=== PATIENT | female | born 1950 | race Caucasian/White ===

== ENCOUNTER → 2017-04-01 | Outpatient (CLI) | payer OTHER, MEDICARE ==
[~2017-04-01] MED LIST: AXERT12.5 MG PO; BACLOFEN 10MG T10 MG PO; COLACE100 MG; GRALISE300 MG PO; LORATIDINE 10 M10 M1 PO; METHADONE HCL 110 M1 PO; METHADONE HCL5 MG PO; NIACIN PO; OCUVITE LUTEIN1 EAC2; OXYCODONE HCL 55 MG PO; OXYCONTIN40 MG PO; PREMARIN0.625 MG PO; SERTRALINE HCL100 MG PO; SIMVASTATIN40 MG PO; TOPAMAX 25 MG T25 M1 PO; VITAMIN D1000 UNI1 PO
--- NOTE | 2017-04-01 17:41 | EKG ---
[place] [address] ELECTROCARDIOGRAM REPORT Name: GABI MUSA Room: [facility]#: [id number] Admission: 04/01/17 Attend Phys: Billy Ashford Discharge: Date of : 46 Report #: [id number] THIS REPORT FOR: //name// [facility] Test Date: 2017-04-01 Test Time: 12:00:42 Pat Name: GABI MUSA Department: Room: Gender: F Assistant Teacher Primary: 25 : 1950 Requested By: Ahsan Frost Order Number: [id number] Reading MD: Vinay Arriaga Measurements Intervals [place] Rate: 65 P: -9 MS: 177 QRS: 56 QRSD: 112 T: 31 QT: 450 QTc: 468 Interpretive Statements Sinus rhythm Borderline intraventricular conduction delay No previous ECG available for comparison Electronically Signed On 04-01-2017 17:41:31 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
--- NOTE | 2017-04-03 09:33 | PAINCON ---
[facility] [address] [place] [address] PAIN MANAGEMENT CONSULTATION Name: GABI MUSA Room: [facility] Campo#: [id number] Admission: 04/01/17 Attend Phys: Billy Ashford Discharge: Date of : 46 Report #: [id number] THIS REPORT FOR: //name// CC: Mark Frost The patient is a 67-year-old female seen in consultation at the request of Dr. Chavis for assistance with management of chronic axial back and lumbar radicular pain. The patient has been maintained on OxyContin 40 mg b.i.d. with oxycodone 5 mg up to b.i.d. for nearly a decade (per the patient). With CDC recommendations for lowering opiate use overall, I was asked to evaluate the patient for appropriateness of medications and offer suggestions regarding optimization of medication management. The patient notes she has had chronic pain since 1998. She has actually had a decompressive laminectomy in 1977 with good relief for nearly 20 years. Symptoms began to recur. She had a subsequent surgery in 1998 and has had ongoing back and left leg pain, which she claims is worse following the surgery. I had actually seen the patient in the past, we trialed a spinal cord stimulator, which had excellent efficacy. I referred her to Dr. Bernard Adams for implantation, spinal cord stimulator was implanted in 08/2012. Unfortunately, per the patient, she has had suboptimal coverage ever since the implantation. She does have some paresthesia into the left hip and lateral thigh. She feels it is helpful and she does use it daily. She notes currently she has pain in the left hip somewhat in the SI area, low back and left leg, exacerbated with standing or walking. She has neurogenic claudication type symptoms with ambulation of more than about 20 steps. The pain starts to move around from back to the abdomen. She has subjective weakness in the leg, paresthesia radiating down the left leg into the lateral 3 toes. Fortunately, she does deny saddle anesthesia or bowel or bladder incontinence. She describes symptoms that are continuous, steady, constant, burning, shooting, cramping, aching, gnawing, throbbing, pounding and tender. She rates her pain a 6 to a "20" on a 0-10 visual analog scale despite supratherapeutic opiate analgesics. Currently, her OxyContin and oxycodone equate to roughly 135 mg morphine equivalents. The patient states she has trialled a calcium channel membrane stabilizing agents including Neurontin and Lyrica, Lyrica failed efficacy and Neurontin after 6 months caused some hallucinations. REVIEW OF SYSTEMS: Complete review of systems is attached to chart and has gone over with the patient. She is . She has 3 daughters. She is seen in the company of her middle daughter. She does not smoke, drink alcohol to excess. History of histoplasmosis, history of cardiac arrhythmia. History of irritable bowel syndrome. History of some chronic anxiety and depression for which she takes sertraline. She has had migraine headaches in the past, had [facility] [address] [place] [address] PAIN MANAGEMENT CONSULTATION Name: GABI MUSA Room: [facility] [place]#: [id number] Admission: 04/01/17 Attend Phys: Billy Ashford Discharge: Date of : 46 Report #: [id number] been prescribed Topamax and Axert, though she tells me she has been off of those for about 3 years. Does take a female hormone replacement and does take simvastatin for dyslipidemia. Surgical history was reviewed, again the 2 aforementioned back surgeries in 1977 and again in 1998 and spinal cord stimulator implant in 2012. Other surgeries included a total abdominal hysterectomy in 1978. The patient has been medically disabled and retired since 07/1998. Her pain impact score is quite high, averaging 67/70. PHYSICAL EXAMINATION: VITAL SIGNS: Reveals a 5 feet 5 inches, 187 pounds female, BMI is 30.2 kg/m2. Blood pressure is 143/70, pulse 72, respiratory rate 16. HEENT: Extraocular muscles are intact, though she does have lateral gaze nystagmus. Pupils are equal and reactive to light and accommodation. Thyroid is enlarged, no nodules are noted. Cervical range of motion is full. Upper extremity strength is generally preserved. HEART: Regular rhythmical without murmur at this time. LUNGS: Clear. Has an endomorphic build. Rises from chair using the armrest. EXTREMITIES: She has a modestly ataxic and antalgic gait. Lower extremity shows diminished strength in the left leg versus the right. Right leg has objective strength about 4-5 to all muscle groups tested. Left leg shows a little bit less strength, perhaps 3/5 and somewhat jerky effort to hip flexion, extension, dorsiflexion, plantar flexion. Difficult to tell if this is secondary to neurogenic source or simply less effort secondary to pain. Straight leg raise is positive at 30 degrees on the left. Patellar reflex is diminished 1/4 versus 2/4 on the right. Achilles reflexes are generally symmetric. Skin integument is intact. There are no recent diagnostic studies available for evaluation at this time, again with a spinal cord stimulator in place, MRIs are contraindicated, though we could get a CT myelogram if further surgery was warranted. RECOMMENDATIONS: Long discussion with the patient today about opiate use and concern for opiate-induced hyperalgesia with supratherapeutic doses. Again, the patient has been on essentially 90 mg of oxycodone a day for nearly a decade. She has pain that is at a minimum is 6 on a VAS and a maximum of "20" on a 0-10 VAS despite this load of opiate. Suggested that we consider an opiate rotation. She may benefit from rotating to methadone, a robust opiate agonist that also is advantageous for neuropathic pain with NMDA receptor activity. Equally analgesic of methadone (to OxyContin 40 mg b.i.d.) would be 30 mg of methadone. Given that with most opiate rotations, we try and decrease the overall opiate load and in the patient's case, we are desirous of trying to get under 90 mg of morphine a day, I have elected to rotate to methadone 5 mg starting with 2 tablets in the morning, 1 at noon, and 2 at night (25 mg methadone per day). [place] [address] PAIN MANAGEMENT CONSULTATION Name: GABI MUSA Room: [facility]#: [id number] Admission: 04/01/17 Attend Phys: Billy Ashford Discharge: Date of : 46 Report #: [id number] this causes any untoward sedation, I will have her drop to 1 tablet in the morning, 1 at noon, and 2 at night (20 mg methadone). Suggest she continue oxycodone 5 mg b.i.d. I would like to see her about 3 weeks after she starts this medication, if she is doing well, we might try and wean a little further. If she is having ongoing pain, we may consider trialing a sodium channel membrane stabilizing agent, likely Tegretol or Trileptal. Lastly, we did order an EKG today, all opiate analgesics are associated with QT interval prolongation, and methadone is perhaps a little more than notorious for this. With a history of cardiac dysrhythmia, we want to ensure that she has QT intervals within normal limits. I have taken the liberty of writing for the aforementioned 2 opiate analgesics, methadone and renewal of oxycodone 5 mg, dispensed 60 tablets (with a release date of 04/21/2017). I will see the patient at the end of April to evaluate efficacy. Thank you for allowing me to participate in the patient's care. I will keep you abreast of her progress. <ELECTRONICALLY SIGNED> By: Ahsan Frost DO 04/03/17 0933 1316 [id number] Frost DO /pallavi
== END ==
LOC: M.CRD 01:29 → M.PC 01:29
DX: M54.9 Dorsalgia, unspecified (principal); M54.16 Radiculopathy, lumbar region; Z98.890 Other specified postprocedural states; Z79.891 Long term (current) use of opiate analgesic

== ENCOUNTER → 2017-05-13 | Outpatient (CLI) | payer OTHER, MEDICARE ==
--- NOTE | 2017-05-14 10:21 | PAINCON ---
[address] [address] PAIN MANAGEMENT CONSULTATION Name: GABI MUSA Room: [facility] [place]#: [id number] Admission: 05/13/17 Attend Phys: Billy Ashford Discharge: Date of : 46 Report #: [id number] THIS REPORT FOR: //name// CC: Mark Frost HISTORY OF PRESENT ILLNESS: The patient is a pleasant 67-year-old female seen in consultation on 04/01/2017, diagnosed with symptomatic chronic pain syndrome, axial back pain, lumbar radiculopathy, status post decompressive laminectomy, component of lumbar and lumbosacral spondylosis without myelopathy or radiculopathy. The patient came to us on supratherapeutic dose of opiate analgesic, OxyContin 40 mg b.i.d. with oxycodone 5 mg b.i.d., 90 mg of oxycodone roughly equivalent to 135 morphine mEq. We rotated the methadone 5 mg 2 in the morning, 1 at noon, and 2 at night (25 mg). She returns to the pain clinic today. She notes the spinal cord stimulator which was placed in 08/2012 afford suboptimal relief. She feels that the current medication has been "about the same" as prior agent, though she does get a little drowsy in the afternoon using oxycodone for breakthrough pain. She feels the pain is little worse after the 5 mg methadone dose. She recently had an upper respiratory infection, was diagnosed with mononucleosis. She notes pain, primarily left gluteal area. She has trigger points in the gluteus medius and gluteus avani as well as some tenderness over the left SI joint. Positive Norris test, Gaenslen's and pelvic distraction as well as trigger point palpation in the left gluteus medius and gluteus avani. We reviewed the fact that opiate medications are being used to provide analgesia adequate to support activities of daily living, not attempting to achieve a specific pain score on the 0-10 Visual Analog Scale. The current opiate medications are providing sufficient analgesia to allow the patient to participate in activities of daily living. The patient is not exhibiting any aberrant behavior suggestive of drug diversion. The patient is not having any adverse reactions to medications. The patient is not suffering from daytime somnolence or mental acuity changes. The patient is managing opiate-induced constipation with appropriate kjad-ala-stffvgs agents and dietary considerations. The patient was counseled on concern for caution with operating a motor vehicle while using opiate medications. A physical exam was performed and the patient's functional status was evaluated. All patients with back pain were advised against the bed rest greater than 4 days and were advised to return to normal activities. Pain score assessment was noted and the treatment plan was reviewed with [place] [address] PAIN MANAGEMENT CONSULTATION Name: GABI MUSA Room: [facility]#: [id number] Admission: 05/13/17 Attend Phys: Billy Ashford Discharge: Date of : 46 Report #: [id number] medications, both prescribed and OTC were reviewed and reconciled on the electronic medical record. Tobacco screening was accomplished and smoking cessation was advised when indicated. BMI was noted and diet/exercise modification was recommended for all patients following outside normal parameters. I reviewed with the patient today their responsibilities to safeguard prescription medications, reviewed their responsibility to utilize medications only as prescribed by the physician. They are to seek and receive pain medications only from 1 physician group ( [facility]). They are to use 1 pharmacy and keep the clinic informed if they change pharmacies. Their responsibilities include making followup visits in a timely fashion and to avoid abrupt discontinuation of medication usage. Their responsibilities further include bringing their medications (bottles from the pharmacy with residual pills) to the visit for possible confirmation of pill counts and the patient understands it is their responsibility to submit to random drug screens to ensure both that the medications prescribed are present, and that no other controlled substances are present. All prescriptions provided today were generated electronically. ASSESSMENT AND RECOMMENDATION: 1. Chronic pain syndrome, axial back pain, requiring complex medication management status post decompressive laminectomy and fusion. Recommendation, we will increase methadone to 10 mg t.i.d. Continue oxycodone 5 mg b.i.d. 2. Acute exacerbation of myofascial pain. Recommendation trigger point injections x 2. 3. Sacroiliac mediated pain. Recommendation, w will seek authorization for left SI joint injection under fluoroscopy. PROCEDURE NOTE: Trigger point injection x 2. PROCEDURE: After written informed consent was obtained, the patient was placed in prone position. Trigger points were identified in the left gluteus medius and gluteus avani. After the area was cleansed with alcohol, 25-gauge needle was used to inject 40 mg triamcinolone plus 8 mL of 0.5% preservative-free bupivacaine into and around the discrete trigger points. All needles removed. The area was cleansed, Band-Aids applied. The patient monitored for an appropriate period of time, discharged in good and stable condition. <ELECTRONICALLY SIGNED> By: Ahsan Frost, 05/14/17 1021 1229 [id number] Hospitalnaseem Frost DO /pallavi
== END ==
LOC: M.PC 03:37
DX: M79.1 Myalgia (principal); M54.16 Radiculopathy, lumbar region; G89.4 Chronic pain syndrome; Z98.890 Other specified postprocedural states; M47.817 Spondylosis without myelopathy or radiculopathy, lumbosacral region; M53.3 Sacrococcygeal disorders, not elsewhere classified; Z79.899 Other long term (current) drug therapy

== ENCOUNTER → 2017-05-20 | Outpatient (CLI) | payer MEDICARE, OTHER | LOC: M.LAB 11:28 | DX: Z86.19 Personal history of other infectious and parasitic diseases (principal) ==

== ENCOUNTER → 2017-06-17 | Outpatient (CLI) | payer OTHER, MEDICARE ==
--- NOTE | 2017-06-22 08:02 | PAINCON ---
[facility] [address] [place] [address] PAIN MANAGEMENT CONSULTATION Name: GABI MUSA Room: [facility] Monk.#: [id number] Admission: 06/17/17 Attend Phys: Billy Ashford Discharge: Date of : 46 Report #: [id number] THIS REPORT FOR: //name// CC: Mark Frost The patient is a 67-year-old female being treated for chronic pain syndrome, lumbar radiculopathy status post decompressive laminectomy, axial back pain, lumbar and lumbosacral spondylosis without myelopathy, requiring complex medication management. Last seen in pain clinic 05/13/2017. Rotated from OxyContin 40 b.i.d. and oxycodone 5 mg b.i.d. to methadone, currently 10 mg t.i.d., 5 in the morning 1:00 p.m. and 9:00 p.m., oxycodone 5 mg roughly 2 a day. She returns to pain clinic today. She is in the company of her daughter who helps with her history. We had a prolonged visit today, greater than 30 minutes was spent with the patient and daughter reviewing therapeutic options and discussing current concerns. The patient is a bit of a wandering historian. She admits to being a little cognitively impaired. Difficult to tell if it is simply from medication or baseline issues. We did trigger point injections at last visit that helped for several weeks. Primary pain is in the left hip SI area, lateral leg, thigh, down into the great toe. She complains of oral thrush, status post multiple rounds of antifungal agents from doctors, Dr. Diallo and Dr. Mark Dixon. Oral exam today; however, is fairly unremarkable. She complains of ongoing thrush sensation. She does have a spinal cord stimulator in place, she states that Dr. Adams was unable to get accurate lead placement on permanent implantation. She does, however, have coverage in the area of her primary pain in the low back, left buttock and leg, though she states it really does only affords "some" relief. She has been trialed on Neurontin in the past up to 1800 mg, did cause psychosis and suicidal ideation. The patient rates her subjective pain score 6 on a VAS. States she is having a fair bit of gastroesophageal reflux. Pain exacerbated with standing, walking and bending. Physical exam shows 5 feet 5 inches, 185 pound female, BMI is 30.9 kilograms per meter squared. Blood pressure 100/81, pulse 75, respiration 16. She continuously moves throughout our discussion, almost a choreoathetoid type activity. She has a lot of tangential thought. Upper extremity strength is generally preserved. Rises from chair using arm rest. She has used a cane in her right hand. Has decreased strength in the left leg, about 3-5 muscle strength to objective testing, left leg for all muscles except anterior tibialis, which is essentially absent. She has chronic drop foot. Right leg is little stronger at 4-5 to all objective testing. She has not fallen in the last 3 months. Lumbar flexion is limited. Lower extremity strength is symmetric, [facility] [address] [facility] [address] PAIN MANAGEMENT CONSULTATION Name: GABI MUSA ANN Room: [facility] [place]#: [id number] Admission: 06/17/17 Attend Phys: Billy Ashford Discharge: Date of : 46 Report #: [id number] tenderness over the left hip and SI area. No discrete trigger points noted. Again, the patient complains of subjective "brain fog." We reviewed the fact that opiate medications are being used to provide analgesia adequate to support activities of daily living, not attempting to achieve a specific pain score on the 0-10 Visual Analog Scale. The current opiate medications are providing sufficient analgesia to allow the patient to participate in activities of daily living. The patient is not exhibiting any aberrant behavior suggestive of drug diversion. The patient is not having any adverse reactions to medications. The patient is not suffering from daytime somnolence or mental acuity changes. The patient is managing opiate-induced constipation with appropriate atzn-jij-akqhyja agents and dietary considerations. The patient was counseled on concern for caution with operating a motor vehicle while using opiate medications. A physical exam was performed and the patient's functional status was evaluated. All patients with back pain were advised against the bed rest greater than 4 days and were advised to return to normal activities. Pain score assessment was noted and the treatment plan was reviewed with the patient. All current medications, both prescribed and OTC were reviewed and reconciled on the electronic medical record. Tobacco screening was accomplished and smoking cessation was advised when indicated. BMI was noted and diet/exercise modification was recommended for all patients following outside normal parameters. I reviewed with the patient today their responsibilities to safeguard prescription medications, reviewed their responsibility to utilize medications only as prescribed by the physician. They are to seek and receive pain medications only from 1 physician group ( [facility]). They are to use 1 pharmacy and keep the clinic informed if they change pharmacies. Their responsibilities include making followup visits in a timely fashion and to avoid abrupt discontinuation of medication usage. Their responsibilities further include bringing their medications (bottles from the pharmacy with residual pills) to the visit for possible confirmation of pill counts and the patient understands it is their responsibility to submit to random drug screens to ensure both that the medications prescribed are present, and that no other controlled substances are present. All prescriptions provided today were generated electronically. ASSESSMENT: Chronic axial back pain status post lumbar decompressive laminectomy, lumbosacral and lumbar spondylosis without myelopathy, requiring complex medication management, has a spinal cord stimulator in place. RECOMMENDATION: After a long discussion with the patient and daughter today, we will continue to try and wean methadone. Currently taking 10 mg 3 [place] [address] PAIN MANAGEMENT CONSULTATION Name: GABI MUSA Room: [facility].#: [id number] Admission: 06/17/17 Attend Phys: Billy Ashford Discharge: Date of : 46 Report #: [id number] We will write to decrease methadone, switch to a 5 mg tablet, release 150 tablets this month with directions to take 2 tablets in the morning, 1 at noon and 2 at night. Four week release prescription for methadone 5 mg, decreases to 120 tablets, 1 in the morning, 1 at noon, and 2 at night. Continue oxycodone 5 mg up to b.i.d. for breakthrough pain. Follow up in 2 months for reevaluation. The patient should be down to methadone 20 mg roughly equivalent to 80 MS along with 10 mg of oxycodone roughly equivalent to 15 MS for a total daily dose of 15 mg morphine equivalent daily. Hopefully, we can continue to wean at that point. May consider addition of membrane stabilizing agent at that time, we will avoid calcium channel membrane stabilizing agents as Neurontin caused suicidal ideation, consider a sodium channel membrane stabilizing agent such as Trileptal (? ). <ELECTRONICALLY SIGNED> By: Ahsan Frost DO 06/22/17 0802 1520 [id number] Frost DO /nt
== END ==
LOC: M.PC 06-10 09:40
DX: M47.816 Spondylosis without myelopathy or radiculopathy, lumbar region (principal); M47.817 Spondylosis without myelopathy or radiculopathy, lumbosacral region; G89.29 Other chronic pain; Z79.899 Other long term (current) drug therapy

== ENCOUNTER → 2017-07-17 | Outpatient (CLI) | payer MEDICARE, OTHER | LOC: M.ULTRA 15:00 | DX: N90.7 Vulvar cyst (principal) ==

== ENCOUNTER → 2017-07-22 | Outpatient (CLI) | payer OTHER, MEDICARE ==
--- NOTE | 2017-07-27 06:53 | PAINCON ---
[address] [address] PAIN MANAGEMENT CONSULTATION Name: GABI MUSA Room: [facility] Campo#: [id number] Admission: 07/22/17 Attend Phys: Billy Ashford Discharge: Date of : 46 Report #: [id number] THIS REPORT FOR: //name// CC: Mark Frost DATE OF SERVICE: 07/22/2017 HISTORY OF PRESENT ILLNESS: The patient is a 67-year-old female being treated for chronic pain syndrome, lumbar radiculopathy status post decompressive laminectomy, axial back pain with lumbar and lumbosacral spondylosis without myelopathy. The patient presented to my clinic on 04/01/2017. She prior had been seen in the pain clinic back in 2012 for lumbar radicular symptoms, somewhat lost to follow up. When she returned to the clinic on 04/01/2017, she had been escalated on opiate analgesics to total daily dose of opiate at OxyContin 40 mg b.i.d. with oxycodone 5 mg b.i.d. Per the patient, she had been on this "for a decade" She had chronic pain since 1998, decompressive laminectomy in 1977 with good relief for 20 years. Subsequent surgery in 1998, had ongoing left leg pain with absent left dorsiflexion (chronic left drop foot). We trialled a spinal cord stimulator with excellent efficacy. I referred her to Dr. Bernard Adams for implantation (this occurred in 08/2012). Unfortunately, the patient has had suboptimal coverage since the implantation. She does have some paresthesia into the left hip and lateral thigh, but feels ongoing neuropathic pain. When I took over her care on 04/01/2017, we pointed out that the patient was at a supratherapeutic load of opiate. She was still complaining of ongoing pain that she rated a 6 to "20" on a 0-10 visual analog scale. I was concerned she at roughly 135 mEq of morphine, she was exhibiting some opiate-induced hyperalgesia. She had trialled and failed multiple calcium channel membrane stabilizing agents including Neurontin and Lyrica. We rotated to methadone 5 mg 2 in the morning, 1 at noon, 2 at night with oxycodone 5 mg b.i.d. for breakthrough pain. We did order an EKG. Last visit on 05/13/2017, we did trigger point injections for myofascial component of pain, specifically the left gluteus medius and gluteus avani. We had increased methadone to 10 mg t.i.d. (this was the 05/13/2017 visit). Again, last visit on 06/17/2017, the patient was noted to be a little cognitively impaired. Had a very tangential conversation, the patient was complaining of oral thrush, status post multiple rounds of antifungal drugs. Oral exam was fairly unremarkable. The patient subjectively complained of being in a "brain fog." After discussion with the patient today, we elected to wean from methadone 10 mg t.i.d. to methadone 5 mg 2 in the morning, 1 at noon, 2 [place] [address] PAIN MANAGEMENT CONSULTATION Name: GABI MUSA ANN Room: [facility] Campo#: [id number] Admission: 07/22/17 Attend Phys: Billy Ashford Discharge: Date of : 46 Report #: [id number] for 1 month and the subsequent month, 1 in the morning, 1 at noon, 2 at night. She does return to the pain clinic today in followup after having taken the 2 sequential weaning doses of methadone. She presents to the pain clinic today with her daughter. States that she feels cognitively impaired (this time, she is relating it to the lowering of the methadone dose?). She is complaining of spasms in her legs, charley-horses, worse at night. Again, she does have the chronic left leg "drop foot." Does use a cane in her right hand when out. Uses a walker at home. PHYSICAL EXAMINATION: GENERAL: Does show a 67-year-old female, BMI 30.8 kilograms per meter squared. VITAL SIGNS: Blood pressure 144/86, pulse 69, respirations of 16. NEUROLOGIC: She is alert and oriented to person, place and time, judged to be a reasonable, though again a little sketchy on some memory issues. MUSCULOSKELETAL: Rates a pain subjectively 8-9 "on a VAS." Again, states she feels that she is "in a brain fog" and feels that it is increasing with her increasing pain. She states her legs "given out," but she has not fallen since we last saw her. Physical exam further notes again decreased left leg strength with absent left dorsiflexion. Does have spasm in the left leg, which is somewhat jerky and intermittent. She does have some of a spastic and antalgic gait. We reviewed the fact that opiate medications are being used to provide analgesia adequate to support activities of daily living, not attempting to achieve a specific pain score on the 0-10 Visual Analog Scale. The current opiate medications are providing sufficient analgesia to allow the patient to participate in activities of daily living. The patient is not exhibiting any aberrant behavior suggestive of drug diversion. The patient is not having any adverse reactions to medications. The patient is not suffering from daytime somnolence or mental acuity changes. The patient is managing opiate-induced constipation with appropriate edmk-eny-lgxidhb agents and dietary considerations. The patient was counseled on concern for caution with operating a motor vehicle while using opiate medications. A physical exam was performed and the patient's functional status was evaluated. All patients with back pain were advised against the bed rest greater than 4 days and were advised to return to normal activities. Pain score assessment was noted and the treatment plan was reviewed with the patient. All current medications, both prescribed and OTC were reviewed and reconciled on the electronic medical record. Tobacco screening was accomplished and smoking cessation was advised when indicated. BMI was noted and diet/exercise modification was recommended for all patients [place] [address] PAIN MANAGEMENT CONSULTATION Name: GABI MUSA [id number] Admission: 07/22/17 Attend Phys: Billy Ashford Discharge: Date of : 46 Report #: [id number] I reviewed with the patient today their responsibilities to safeguard prescription medications, reviewed their responsibility to utilize medications only as prescribed by the physician. They are to seek and receive pain medications only from 1 physician group ([facility]). They are to use 1 pharmacy and keep the clinic informed if they change pharmacies. Their responsibilities include making followup visits in a timely fashion and to avoid abrupt discontinuation of medication usage. Their responsibilities further include bringing their medications (bottles from the pharmacy with residual pills) to the visit for possible confirmation of pill counts and the patient understands it is their responsibility to submit to random drug screens to ensure both that the medications prescribed are present, and that no other controlled substances are present. All prescriptions provided today were generated electronically. ASSESSMENT: Chronic axial back pain, lower extremity spasticity, neuropathic pain, status post multiple back surgeries, requiring complex medication management, spinal cord stimulator in place, but only partially functioning. RECOMMENDATION: Long discussion with the patient and her daughter today. She was seen for approximately 30 minutes, greater than 50% of time spent reviewing therapeutic options and counseling the patient. I have told the patient despite her request to increase methadone that we will continue at 5 mg in the morning, 5mg at noon and 10 at night. Our goal is to drop down to 1 t.i.d. Continue oxycodone 5 mg b.i.d. We will add baclofen for subjective spasm 10 mg t.i.d. with a fourth tablet at bedtime. Follow up in 3-4 weeks to evaluate efficacy of medication changes. If doing well, we can consider dropping methadone to 5 mg t.i.d. If she is still having ongoing pain, we may consider pushing the baclofen dose, ceiling dose typically around 80 mg. Discharged in good and stable condition after 25+ minute visit, greater than 50% of the time spent counseling the patient and encouraging increase functional activity. <ELECTRONICALLY SIGNED> By: Ahsan Frost DO 07/27/17 [id number] Frost DO /nt
== END ==
LOC: M.PC 01:45
DX: M47.26 Other spondylosis with radiculopathy, lumbar region (principal); M47.27 Other spondylosis with radiculopathy, lumbosacral region; Z79.899 Other long term (current) drug therapy

== ENCOUNTER → 2017-08-19 | Outpatient (CLI) | payer OTHER, MEDICARE ==
--- NOTE | 2017-08-20 07:09 | PAINCON ---
[facility] [address] [place] [address] PAIN MANAGEMENT CONSULTATION Name: GABI MUSA Room: [facility] Campo#: [id number] Admission: 08/19/17 Attend Phys: Billy Ashford Discharge: Date of : 46 Report #: [id number] THIS REPORT FOR: //name// CC: Mark Frost DATE OF SERVICE: 08/19/2017 The patient is an unfortunate 67-year-old female being treated for chronic pain syndrome. She is status post lumbar decompressive laminectomy, axial back pain, lumbar spondylosis without myelopathy, requiring complex medication management. Last seen in pain clinic 07/22/2017. She was prior seen in pain clinic back in 2012, lost to follow up. She returned to our care in March of this year. Presents to pain clinic today for prolonged visit. 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 Dr. Dixon has sent her to us for evaluation. When we saw her, she was taking roughly 135 morphine equivalents a day for ongoing pain concerns. We rotated to methadone and has tried to wean down. She states she has had some "brain fog" with higher dose opiates. Currently, she is using methadone 5 mg 1 in the morning, 1 at noon, and 2 at night. Oxycodone 5 mg b.i.d. for breakthrough pain. We trialed baclofen for spasm and the patient described as "charley horses" in her legs at night. This seems to have been somewhat helpful. Today, she notes her subjective pain score is 8 on a VAS. She does have a spinal cord stimulator in place and it helps some, though it does not completely cover the primary area of pain. PHYSICAL EXAMINATION: Shows a 5-foot 5-inch, 184-pound female, BMI is 30.7 kilograms per meter squared. Blood pressure 138/84, pulse 75, respirations 16. Alert and oriented to person, place and time, judged to be a reasonable historian. Cervical range of motion is full. Position of comfort is standing. She has some chronic anxiety and movement disorder. She tends to rock as she is sitting and/or standing. Upper extremity strength, however, is generally preserved, slight decrease left arm compared to the right. Moderately antalgic gait with pain favoring the left leg. Positive straight leg raise at 30 degrees. No other specific radicular symptoms are noted. Simply diffuse pain in the back and leg. The patient had a CT myelogram performed (spinal cord stimulator precludes MRI). Unfortunately, despite request, we have yet to receive that diagnostic study. Again, however, on objective basis, physical exam does not point any specific radicular symptoms. We reviewed the fact that opiate medications are being used to provide analgesia adequate to support activities of daily living, not attempting to achieve a specific pain score on the 0-10 Visual Analog Scale. The current opiate medications are providing sufficient analgesia [place] [address] PAIN MANAGEMENT CONSULTATION Name: GABI MUSA Room: [facility] Campo#: [id number] Admission: 08/19/17 Attend Phys: Billy Ashford Discharge: Date of : 46 Report #: [id number] participate in activities of daily living. The patient is not exhibiting any aberrant behavior suggestive of drug diversion. The patient is not having any adverse reactions to medications. The patient is not suffering from daytime somnolence or mental acuity changes. The patient is managing opiate-induced constipation with appropriate vmxh-opn-pupumlg agents and dietary considerations. The patient was counseled on concern for caution with operating a motor vehicle while using opiate medications. A physical exam was performed and the patient's functional status was evaluated. All patients with back pain were advised against the bed rest greater than 4 days and were advised to return to normal activities. Pain score assessment was noted and the treatment plan was reviewed with the patient. All current medications, both prescribed and OTC were reviewed and reconciled on the electronic medical record. Tobacco screening was accomplished and smoking cessation was advised when indicated. BMI was noted and diet/exercise modification was recommended for all patients following outside normal parameters. I reviewed with the patient today their responsibilities to safeguard prescription medications, reviewed their responsibility to utilize medications only as prescribed by the physician. They are to seek and receive pain medications only from 1 physician group ( [facility]). They are to use 1 pharmacy and keep the clinic informed if they change pharmacies. Their responsibilities include making followup visits in a timely fashion and to avoid abrupt discontinuation of medication usage. Their responsibilities further include bringing their medications (bottles from the pharmacy with residual pills) to the visit for possible confirmation of pill counts and the patient understands it is their responsibility to submit to random drug screens to ensure both that the medications prescribed are present, and that no other controlled substances are present. All prescriptions provided today were generated electronically. ASSESSMENT: Chronic axial back pain, lumbar radiculopathy, status post decompressive laminectomy in a patient with chronic pain syndrome. RECOMMENDATION: We discussed CDC risk stratification, morphine equivalents 0-50, 50-90 and 90+ mg per day, do correlate with increasing risk including risk of from overdose and other causes in the 90+ mg per day group. With methadone 5 mg 4 tablets a day equates to 80 mg of morphine a day with oxycodone 5 b.i.d. This equates to another 15 mg. She is at 95 mEq of morphine a day. After a long discussion with the patient and her daughter today, we elected to drop methadone down to 5 mg t.i.d. Continue oxycodone 5 mg b.i.d. This will equate to roughly 75 mg morphine equivalent putting her in the moderate risk group. Encouraged her to use the baclofen with evening meal and at bedtime to help with nighttime cramping and hopefully [place] [address] PAIN MANAGEMENT CONSULTATION Name: GABI MUSA ANN [facility] [id number] Admission: 08/19/17 Attend Phys: Billy Ashford Discharge: Date of : 46 Report #: [id number] Taken the liberty of writing for 2 months of current medication. Suggest the patient contact her Mariely case aide to find another pain clinic physician on their panel to continue managing her medications. I pointed out that I will be leaving the practice area at the end of this month. She will again need to find another provider to avoid any opiate withdrawal concerns. The patient discharged in good and stable condition after prolonged visit, greater than 25 minutes were spent reviewing therapeutic options, discussing future plans and risk stratification concerns. <ELECTRONICALLY SIGNED> By: Ahsan Frost DO 08/20/17 0709 [id number] Centernaseem Frost DO /pallavi
== END ==
LOC: M.PC 03:45
DX: M54.16 Radiculopathy, lumbar region (principal); G89.4 Chronic pain syndrome; M54.5 Low back pain; Z79.899 Other long term (current) drug therapy

== ENCOUNTER → 2019-05-12 | Outpatient (CLI) | payer MEDICARE, OTHER | LOC: M.RAD 10:05 | DX: Z12.31 Encounter for screening mammogram for malignant neoplasm of breast (principal) ==